=== PATIENT | female | born 1945 | race Caucasian/White ===

== ENCOUNTER 2017-05-27 11:51 | Day surgery (SDC) | payer MEDICARE, OTHER ==
[2017-05-20 16:46] VITALS: BMI 27.1
[2017-05-27] MEDS: GENTAMICIN SULFATE 0.3% OPHTHALMIC (EYE DROPS) 5ML BOTTLE ONE ×4 (12:25→12:55)
[2017-05-27] MEDS: PHENYLEPHRINE 2.5% OPHTH SOLN 15 ML BOTTLE ONE ×4 (12:25→12:55)
[2017-05-27] MEDS: CYCLOPENTOLATE HCL 1% OPHTH SOLN 2 ML BOTTLE ONE ×4 (12:25→12:55)
[2017-05-27] MEDS: TROPICAMIDE 1% OPHTH SOLN 15 ML BOTTLE ONE ×4 (12:25→12:55)
[2017-05-27] MEDS ORDERED: ONDANSETRON 4 MG/2 ML VIAL IVPUSH PRN ×2 (12:36→13:29)
[2017-05-27] MEDS ORDERED: oxyCODONE HCL 5 MG TABLET PO PRN (12:36)
[2017-05-27] MEDS ORDERED: MIDAZOLAM HCL 2 MG/2 ML SINGLE DOSE VIAL ONE (12:38)
[2017-05-27] MEDS ORDERED: ACETAMINOPHEN 325 MG TABLET (FP) PO PRN (12:44)
[2017-05-27] MEDS ORDERED: LACTATED RINGERS SOLUTION 1,000 ML IV SCH ×2 (12:45→13:30)
[2017-05-27] MEDS ORDERED: LIDOCAINE HCL/PF 2% SDV 5ML VIAL ONE (13:07)
[2017-05-27 14:25] VITALS: TEMP 97.9
[2017-05-27 14:55] VITALS: BP 142/67; PULSE 68
--- NOTE | 2017-05-28 14:17 | OP ---
DATE OF OPERATION: 05/27/2017 PROCEDURE: Planned extracapsular cataract extraction, phacoemulsification, insertion of posterior chamber lens implant, right eye. Difficult cataract extraction due to pupillary miosis. PREOPERATIVE DIAGNOSIS: Mature cataract, right eye, pupillary miosis, right eye. POSTOPERATIVE DIAGNOSIS: Mature cataract, right eye, pupillary miosis, right eye. SURGEON: Helio Tinoco MD ELECTRICAL LOGGER SURGEON: Helio Tinoco MD ANESTHESIA: Local standby. ANESTHESIOLOGIST: Jessie Casanova MD COMPLICATIONS: None. FINDINGS AND PROCEDURES: After successful peribulbar anesthesia was given in the OR, the patient was prepped and draped in the sterile usual manner to expose the right eye. The operating microscope brought in position over the right eye. Then, Tegaderm strips and a lid speculum were inserted to expose the right eye. Attention was focused to the superior fornix, where a superior fornix flap was then fashioned for 12 mm using Demetris scissors, 0.12 forceps, and hemostasis achieved with electrocautery. A limbal groove was fashioned for 3 mm and dissected anterior into clear cornea. Then, a 3-mm blade was used to enter the anterior chamber. Then, under Viscoat, a 360-degree anterior capsulotomy was performed and the leaflet removed from the eye. Phacoemulsification was started, but it was stopped senior care through when the pupil became too miotic, and it was necessary to insert four iris hooks equally spaced apart to dilate the pupil from 3.5 mm to approximately 7.5 mm. Phacoemulsification of the entire nucleus was then continued without complications followed by irrigation and aspiration of all cortical material leaving an intact posterior capsule and a red reflex present. Provisc was injected in the posterior chamber to deep in the posterior capsule, and then, the implant was inspected carefully with a microscope and found to be free of defects, debris, and flaws. It was folded, placed in the Provisc-soaked cartridge, and the cartridge placed in the injector, and then the implant was injected such that the inferior haptic was in the inferior capsular bag, and the superior haptic was in the superior capsular bag, and rotated in the horizontal position with the Sinskey hook. The iris hooks were then removed from the eye, and this was followed by irrigation and aspiration of all viscoelastic material followed by injection of Miochol, Miostat, and BSS, and the wound was closed with a single interrupted 2-0 Ethilon suture and tested for leakage and none was found. At this point, the implant was fixated in the capsular bag centrally located with the round pupil intact, posterior capsule red reflex present. Conjunctival tenon flap was reapproximated, and then, topical Betoptic S and Maxitrol ophthalmic suspensions were placed as was Bacitracin ophthalmic ointment. The Tegaderm strips and the lid speculum were removed from the eye. The lids were closed and a patch and shield placed on the eye, and the patient was then discharged from the operating room to the recovery area in good condition having tolerated the procedure well. Clarisse [id number]
== END 2017-05-27 15:00 | disposition home or self-care (01) ==
LOC: FASU 11:51
PROVIDERS: ATTEND Ophthalmology
PROC: 08RJ3JZ Replacement of Right Lens with Synthetic Substitute, Percutaneous Approach (ICD-10-PCS; principal; 2017-05-27 13:20)
DX: H25.091 Other age-related incipient cataract, right eye (principal); H57.03 Miosis